=== PATIENT | female | born 1980 | race African-American/Black ===

== ENCOUNTER 2018-03-12 08:17 | Emergency (ER) | payer MEDICAID ==
[~2018-03-12] VITALS: Ht 165.1 cm; Wt 81.6 kg
[~2018-03-12 08:17] MED LIST: ALBUTEROL SULF8.5 GM INH; AZITHROMYCIN250 MG ORAL; BACTRIM DS TAB1 EAC1 ORAL; BACTRIM-DS1 EA PO; CEPHALEXIN500 MG PO; IBUPROFEN800 MG ORAL; NKM
[2018-03-12 08:25] VITALS: BP 138/79
[2018-03-12 08:59] LABS: BASOPHILS % (AUTO) 1.8 % (0.0-2.0); EOSINOPHILS % (AUTO) 1.9 % (0.0-3.0); HEMATOCRIT 41.1 % (37.0-47.0); HEMOGLOBIN 13.1 G/DL (12.0-16.0); LYMPHOCYTES % (AUTO) 42.9 % (20.0-45.0); MEAN CORPUSCULAR VOLUME 83 FL (80-99); NEUTROPHILS % (AUTO) 44.3 % (45.0-75.0); PLATELET COUNT 193 K/UL (150-450); RED BLOOD COUNT 4.93 M/UL (4.20-5.40); RED CELL DISTRIBUTION WIDTH 12.7 % (11.6-14.8); WHITE BLOOD COUNT 5.6 K/UL (4.8-10.8)
[2018-03-12 09:08] LABS: ANION GAP 7 mmol/L (5-15); BLOOD UREA NITROGEN 11 mg/dL (7-18); CALCIUM 9.3 MG/DL (8.5-10.1); CARBON DIOXIDE 29 MMOL/L (21-32); CHLORIDE 103 MMOL/L (98-107); CREATININE 0.9 MG/DL (0.55-1.30); SODIUM 139 MMOL/L (136-145)
--- NOTE | 2018-03-12 09:11 | Emergency Room Report ---
History of Present Illness General Chief Complaint: General Complaint Source: Patient Present Illness HPI The patient states that she was driving with her daughter to drop her at school this morning. She states that she made a wrong turn it. She states that occurred she felt "off." She states she also noted that this morning when she woke up she was nauseated. She had no vomiting. She is not nauseated any longer. She states that shortly thereafter she developed a numbness sensation in the left side of her body. She states that she is unsure what was going on. She states that this lasted about 15-20 minutes. She states that it was very disconcerting. She denies headache. She denies blurry vision. She denies neck pain. She denies recent illness. She denies fever or chills. She has no other complaints. Allergies: Coded Allergies: CIPROFLOXACIN (Unverified Allergy, Unknown, 12/05/15) Patient History Past Medical History: see triage record, asthma - Hx of asthma Past Surgical History: Pertinent Family History: none Social History: Denies: smoking, alcohol use, drug use Reviewed Nursing Documentation: PMH: Agreed; PSxH: Agreed Nursing Documentation-PMH Hx Cardiac Problems: No Hx Asthma: Yes Hx Gastrointestinal Problems: No - C/S in 1999 Review of Systems All Other Systems: negative except mentioned in HPI Physical Exam Vital Signs Date Time Temp Pulse Resp B/P (MAP) Pulse Ox O2 Delivery O2 Flow Rate FiO2 03/12/18 08:21 98.1 79 20 138/79 100 Room Air 98.1 Sp02 EP Interpretation: reviewed, normal General Appearance: no apparent distress, alert, GCS 15, non-toxic Head: normocephalic, atraumatic Eyes: bilateral eye normal inspection, bilateral eye PERRL ENT: hearing grossly normal, normal pharynx, no angioedema, normal voice Neck: full range of motion, supple/symm/no masses Respiratory: chest non-tender, lungs clear, normal breath sounds, speaking full sentences Cardiovascular #1: regular rate, rhythm, no edema Gastrointestinal: normal bowel sounds, non tender, soft, non-distended, no guarding, no rebound Rectal: deferred Musculoskeletal: back normal, gait/station normal, normal range of motion, non- tender Neurologic: alert, oriented x3, responsive, motor strength/tone normal, sensory intact, speech normal Psychiatric: judgement/insight normal, memory normal, mood/affect normal, no suicidal/homicidal ideation Skin: normal color, no rash, warm/dry, well hydrated Medical Decision Making Diagnostic Impression: Primary Impression: Arm paresthesia, left Additional Impression: Left leg paresthesias ER Course This patient presents with an intermittent episode of left-sided paresthesias. Patient is otherwise healthy and had a normal physical exam and specifically a normal neurologic exam. She had some nausea this morning and may have a viral illness. I did go ahead and do basic labs to include CBC, CMP, cardiac enzymes , thyroid panel and these were unremarkable. There is no evidence of electrolyte abnormality, anemia, thyroid dysfunction or acute coronary syndrome. EKG is reassuring. Given the episode of numbness, although, I have low suspicion for an intracranial process, I did obtain a CT of the head which was reassuring. I did educate the patient if she has any further symptoms she should return. Also, she could follow-up with her primary care physician and obtain an MRI, at this time, do not feel that an MRI is indicated emergently given the benign evaluation and history. Further, the patient admits to recent increased stress in her life and then difficulty with traffic getting her daughter to school this morning. I feel that this also could be anxiety related. However, I did educate the patient to follow-up closely with her primary care physician. She is given close return precautions and follow-up instructions. Laboratory Tests Test 03/12/18 08:40 White Blood Count 5.6 K/UL (4.8-10.8) Red Blood Count 4.93 M/UL (4.20-5.40) Hemoglobin 13.1 G/DL (12.0-16.0) Hematocrit 41.1 % (37.0-47.0) Mean Corpuscular Volume 83 FL (80-99) Mean Corpuscular Hemoglobin 26.5 PG (27.0-31.0) L Mean Corpuscular Hemoglobin Concent 31.8 G/DL (32.0-36.0) L Red Cell Distribution Width 12.7 % (11.6-14.8) Platelet Count 193 K/UL (150-450) Mean Platelet Volume 12.5 FL (6.5-10.1) H Neutrophils (%) (Auto) 44.3 % (45.0-75.0) L Lymphocytes (%) (Auto) 42.9 % (20.0-45.0) Monocytes (%) (Auto) 9.0 % (1.0-10.0) Eosinophils (%) (Auto) 1.9 % (0.0-3.0) Basophils (%) (Auto) 1.8 % (0.0-2.0) Prothrombin Time 9.8 SEC (9.30-11.50) Prothrombin Time INR 0.9 (0.9-1.1) PTT 28 SEC (23-33) Urine Color Pale yellow Urine Appearance Cloudy Urine pH 6 (4.5-8.0) Urine Specific Hiram 1.020 (1.005-1.035) Urine Protein Negative (NEGATIVE) Urine Glucose (UA) Negative (NEGATIVE) Urine Ketones Negative (NEGATIVE) Urine Occult Blood 1+ (NEGATIVE) H Urine Nitrite Negative (NEGATIVE) Urine Bilirubin Negative (NEGATIVE) Urine Urobilinogen Normal MG/DL (0.0-1.0) Urine Leukocyte Esterase 1+ (NEGATIVE) H Urine RBC 0-2 /HPF (0 - 2) Urine WBC 2-4 /HPF (0 - 2) Urine Squamous Epithelial Cells Few /LPF (NONE/OCC) Urine Bacteria Many /HPF (NONE) H Urine HCG, Qualitative Negative (NEGATIVE) Sodium Level 139 MMOL/L (136-145) Potassium Level 4.0 MMOL/L (3.5-5.1) Chloride Level 103 MMOL/L (98-107) Carbon Dioxide Level 29 MMOL/L (21-32) Anion Gap 7 mmol/L (5-15) Blood Urea Nitrogen 11 mg/dL (7-18) Creatinine 0.9 MG/DL (0.55-1.30) Estimate Glomerular Filtration Rate > 60 mL/min (>60) Glucose Level 93 MG/DL (74-106) Calcium Level 9.3 MG/DL (8.5-10.1) Total Bilirubin 0.3 MG/DL (0.2-1.0) Aspartate Amino Transferase (AST) 15 U/L (15-37) Alanine Aminotransferase (ALT) 22 U/L (12-78) Alkaline Phosphatase 49 U/L (46-116) Total Protein 8.4 G/DL (6.4-8.2) H Albumin 3.8 G/DL (3.4-5.0) Globulin 4.6 g/dL Albumin/Globulin Ratio 0.8 (1.0-2.7) L Thyroid Stimulating Hormone (TSH) 1.889 uiU/mL (0.358-3.740) Free Thyroxine 0.86 NG/DL (0.76-1.46) Urine Opiates Screen Negative (NEGATIVE) Urine Barbiturates Screen Negative (NEGATIVE) Phencyclidine (PCP) Screen Negative (NEGATIVE) Urine Amphetamines Screen Negative (NEGATIVE) Urine Benzodiazepines Screen Negative (NEGATIVE) Urine Cocaine Screen Negative (NEGATIVE) Urine Marijuana (THC) Screen Negative (NEGATIVE) EKG Diagnostic Results Rate: normal Rhythm: NSR ST Segments: no acute changes Rhythm Strip Diag. Results EP Interpretation: yes Rate: 70's Rhythm: NSR, no PVC's, no ectopy CT/MRI/US Diagnostic Results CT/MRI/US Diagnostic Results : Imaging Test Ordered: CT head Impression No acute findings. See official report. Last Vital Signs Date Time Temp Pulse Resp B/P (MAP) Pulse Ox O2 Delivery O2 Flow Rate FiO2 03/12/18 08:25 98.1 79 20 138/79 100 Room Air 98.1 Disposition: HOME, SELF-CARE Condition: Improved Referrals: [facility],REFERRING (PCP) AGUSTIN LANTIGUA D.O. March 12, 2018 09:11
[2018-03-12 09:15] LABS: APPEARANCE,URINE CLOUDY; BILIRUBIN, URINE NEGATIVE (NEGATIVE); COLOR,URINE PALE YELLOW; GLUCOSE, URINE (UA) NEGATIVE (NEGATIVE); KETONES,URINE NEGATIVE (NEGATIVE); LEUKOCYTE ESTERASE ,URINE 1+ (NEGATIVE); NITRITE,URINE NEGATIVE (NEGATIVE); PH,URINE 6 (4.5-8.0); PROTEIN,URINE NEGATIVE (NEGATIVE); UROBILINOGEN,URINE NORMAL MG/DL (0.0-1.0)
[2018-03-12 09:24] LABS: ALANINE AMINOTRANSFERASE 22 U/L (12-78); ALBUMIN 3.8 G/DL (3.4-5.0); ALBUMIN/GLOBULIN RATIO 0.8 (1.0-2.7); ALKALINE PHOSPHATASE 49 U/L (46-116); ASPARTATE AMINO TRANSFERASE 15 U/L (15-37); BILIRUBIN,TOTAL 0.3 MG/DL (0.2-1.0); INR 0.9 (0.9-1.1)
--- NOTE | 2018-03-12 09:26 | Diagnostic Imaging Report ---
Indication: Left-sided head, left arm, left leg numbness that started this morning Technique: Continuous helical CT scanning of the head was performed without intravenous contrast material. Axial and coronal 5 mm sections were generated. Radiation dose was minimized using automated exposure control Dose: Total Dose Length Product - DLP 1438.[address] Dose Index - CTDIvol(s) 70.38 mGy. Comparison: none Findings: The ventricular system is normal in size and configuration. There is no shift of midline structures. No abnormal extra-axial fluid collections are noted. There is no evidence of intracerebral bleeding. No other abnormal high or low density areas are noted within the brain. Normal torre-white differentiation. Intact calvarium. Visualized orbits and sinuses are unremarkable Impression: Normal CT scan of the head without contrast material. The CT scanner at [facility] is accredited by the [employer] and the scans are performed using protocols designed to limit radiation exposure to as low as reasonably achievable to attain images of sufficient resolution adequate for diagnostic evaluation.
[2018-03-12 09:37] VITALS: BP 130/76
--- NOTE | 2018-03-15 14:01 | Cardiology Report ---
APPROVED REPORT EKG Measurement Heart [id number] FL [id number] Normal sinus rhythm Incomplete right bundle branch block Cannot rule out Anterior infarct, age undetermined Abnormal ECG
== END 2018-03-12 09:40 | disposition home or self-care (01) ==
LOC: EMR 08:37
DX: R20.2 Paresthesia of skin (principal); J45.909 Unspecified asthma, uncomplicated; Z88.1 Allergy status to other antibiotic agents
CPT/HCPCS: 36415; 70450; 80053; 80307; 81003; 81025; 84439; 84443; 85025; 85610; 85730; 87086; 87181; 93005; 99284

== ENCOUNTER 2019-08-05 16:11 | Emergency (ER) | payer MEDICAID ==
[~2019-08-05] VITALS: Ht 165.1 cm; Wt 86.2 kg
[2019-08-05 16:41] VITALS: BP 134/81
--- NOTE | 2019-08-05 16:42 | NUR ---
ED Nurse Note: first contact with pt. a/ox4. reports possible bug bites on right upper arm x1day, warm/swelling noted.
--- NOTE | 2019-08-05 17:21 | Emergency Room Report ---
History of Present Illness General Chief Complaint: Skin Rash/Abscess Source: Medical Record Present Illness HPI 39-year-old female presents to the emergency department complaining of 6 out of 10 severity pain, tenderness, swelling and erythema to the right forearm x1 day. Patient reports that she was at work outside yesterday when she began feeling itching and swelling on the right forearm and the back of her neck. Pt. denies fevers, chills or swollen tender lymph nodes. Denies lesions/rashes elsewhere on the body. Denies new medications or body washes or creams. Denies swelling of the lips, tongue , throat or airway. Denies wheezing, or shortness of breath. Denies recent travel, recent illness or ill contacts. denies blisters, oral lesions, or sloughing of the skin. Allergies: Coded Allergies: CIPROFLOXACIN (Unverified Allergy, Unknown, 12/05/15) Patient History Past Medical History: see triage record Past Surgical History: none Pertinent Family History: none Last Menstrual Period: 07/10/19 Reviewed Nursing Documentation: PMH: Agreed; PSxH: Agreed Nursing Documentation-PMH Past Medical History: No History, Except For Hx Cardiac Problems: No Hx Asthma: Yes Hx Gastrointestinal Problems: No - C/S in 1999 Review of Systems All Other Systems: negative except mentioned in HPI Physical Exam Vital Signs Date Time Temp Pulse Resp B/P (MAP) Pulse Ox O2 Delivery O2 Flow Rate FiO2 08/05/19 16:26 98.2 83 18 134/81 (98) 98 Room Air Sp02 EP Interpretation: reviewed, normal General Appearance: no apparent distress, alert, GCS 15, non-toxic Head: normocephalic, atraumatic Eyes: bilateral eye normal inspection, bilateral eye PERRL ENT: hearing grossly normal, normal voice Neck: full range of motion Respiratory: lungs clear, normal breath sounds, no wheezing, speaking full sentences Cardiovascular #1: regular rate, rhythm, normal capillary refill Musculoskeletal: back normal, gait/station normal, normal range of motion, inflammation - right forearm localized area of erythema and warmth 3cm in diameter, tender - mild ttp to the medial right forearm. Neurologic: alert, oriented x3, responsive, motor strength/tone normal, sensory intact, speech normal, grossly normal Psychiatric: judgement/insight normal Skin: other - right forearm localized area of erythema and warmth 3cm in diameter, there is a 1cm erythematous papule on the right posterior neck. no blisters, vessicles or sloughing of the skin. Lymphatic: no adenopathy Medical Decision Making PA Attestation Dr. Sotelo is my supervising Physician whom patient management has been discussed with. Diagnostic Impression: Primary Impression: Insect bites of multiple sites, infected ER Course 39-year-old female presents to the emergency department complaining of 6 out of 10 severity pain, tenderness, swelling and erythema to the right forearm x1 day. Patient reports that she was at work outside yesterday when she began feeling itching and swelling on the right forearm and the back of her neck. Pt. denies fevers, chills or swollen tender lymph nodes. Denies lesions/rashes elsewhere on the body. Denies new medications or body washes or creams. Denies swelling of the lips, tongue , throat or airway. Denies wheezing, or shortness of breath. Denies recent travel, recent illness or ill contacts. denies blisters, oral lesions, or sloughing of the skin. Ddx considered but are not limited to cellulitis, scabies, insect bites, tic bites, spider bites, contact dermatitis, Drug reaction, allergic reaction, fungal infection, lice. Vital signs: are WNL, pt. is afebrile H&PE are most consistent with insect bites, one which has a secondary cellulitis. ORDERS: none required at this time, the diagnosis is clinical ED INTERVENTIONS: None required at this time. DISCHARGE: At this time pt. is stable for d/c to home. Will provide printed patient care instructions, and any necessary prescriptions. Care plan and follow up instructions have been discussed with the patient prior to discharge. Last Vital Signs Date Time Temp Pulse Resp B/P (MAP) Pulse Ox O2 Delivery O2 Flow Rate FiO2 08/05/19 16:41 98.2 83 18 134/81 98 Room Air Disposition: HOME, SELF-CARE Condition: Stable Scripts Hydrocortisone 2% Cream (ANTI-ITCH 2% CREAM) Y Cr 1 APPLIC TP Q6HR, #28.3 GM Prov: Etta Case 08/05/19 Ibuprofen* (MOTRIN*) 600 Mg Tablet 600 MG ORAL THREE TIMES A DAY, #30 TAB 0 Refills Prov: Etta Case 08/05/19 Cephalexin* (KEFLEX*) 500 Mg Capsule 500 MG ORAL EVERY 12 HOURS for 7 Days, #14 CAP 0 Refills Prov: Etta Case 08/05/19 Patient Instructions: Cellulitis, [id number], Insect Bite, [id number] Additional Instructions: Take medications as directed. Follow up with a Primary Care Provider in 3-5 days, even if your symptoms have resolved. Return sooner to ED if new symptoms occur, or current symptoms become worse. - Please note that this Emergency Department Report was dictated using [employer] wire aligner technology software, occasionally this can lead to erroneous entry secondary to interpretation by the dictation equipment. Etta Case Aug 05, 2019 17:21
[2019-08-05] MEDS ORDERED: ANTI-ITCH28 G1 TP (17:27)
[2019-08-05] MEDS ORDERED: IBUPROFEN600 MG ORAL (17:27)
[2019-08-05] MEDS ORDERED: CEPHALEXIN500 MG ORAL (17:27)
[2019-08-05 17:42] VITALS: BP 134/81
== END 2019-08-05 17:45 | disposition home or self-care (01) ==
LOC: EMR 16:30
DX: S50.861A Insect bite (nonvenomous) of right forearm, initial encounter (principal); S10.96XA Insect bite of unspecified part of neck, initial encounter; L08.9 Local infection of the skin and subcutaneous tissue, unspecified; Z88.1 Allergy status to other antibiotic agents; J45.909 Unspecified asthma, uncomplicated; W57.XXXA Bitten or stung by nonvenomous insect and other nonvenomous arthropods, initial encounter; Y92.9 Unspecified place or not applicable; Y99.0 Civilian activity done for income or pay
CPT/HCPCS: 99282

== ENCOUNTER 2019-09-12 22:33 | Emergency (ER) | payer MEDICAID ==
[~2019-09-12] VITALS: Ht 165.1 cm; Wt 86.2 kg
[~2019-09-12 22:33] MED LIST changes: +ANTI-ITCH28 G1 TP; +CEPHALEXIN500 MG ORAL; +IBUPROFEN600 MG ORAL
[2019-09-12 22:41] VITALS: BP 138/87
--- NOTE | 2019-09-12 23:04 | Emergency Room Report ---
History of Present Illness General Chief Complaint: Upper Respiratory Illness Source: Patient Present Illness [facility] This is a 39-year-old female with history of asthma as a kid. She has not used an inhaler for many years. She presents with chief complaint of flulike illness. Onset yesterday. She started having some congestion and weakness. Woke up with loss of voice. Now with shortness of breath. Worse with exertion. Worse with inspiration. No fever chills but no nausea no vomiting. No diarrhea. Denies any pain other than her throat pain. Allergies: Coded Allergies: CIPROFLOXACIN (Unverified Allergy, Unknown, 12/05/15) Patient History Past Medical History: see triage record, old chart reviewed Past Surgical History: none Pertinent Family History: none Social History: Denies: smoking Last Menstrual Period: 08/2019 Now: No Immunizations: other Reviewed Nursing Documentation: PMH: Agreed; PSxH: Agreed Nursing Documentation-PMH Hx Cardiac Problems: No Hx Asthma: Yes Hx Gastrointestinal Problems: No - C/S in 1999 Review of Systems Eye: Denies: eye pain, blurred vision ENT: Reports: nose congestion, throat pain; Denies: ear pain, throat swelling Respiratory: Reports: cough, shortness of breath Cardiovascular: Denies: chest pain, palpitations Gastrointestinal: Denies: abdominal pain, diarrhea, nausea, vomiting Musculoskeletal: Denies: back pain, joint pain Skin: Denies: rash Neurological: Denies: headache, numbness Endocrine: Denies: increased thirst, increased urine Hematologic/Lymphatic: Denies: easy bruising All Other Systems: negative except mentioned in HPI Physical Exam Vital Signs Date Time Temp Pulse Resp B/P (MAP) Pulse Ox O2 Delivery O2 Flow Rate FiO2 09/12/19 22:36 99.1 113 18 138/87 (104) 95 Room Air Vitals with slight tachycardia Sp02 EP Interpretation: reviewed, normal General Appearance: well appearing, no apparent distress, alert Head: normocephalic, atraumatic Eyes: bilateral eye PERRL, bilateral eye EOMI ENT: hearing grossly normal, uvula midline - Mild edema, pharyngeal erythema Neck: full range of motion, supple, no meningismus Respiratory: chest non-tender, other - Coughing with inspiration Cardiovascular #1: regular rate, rhythm, no murmur Gastrointestinal: normal bowel sounds, non tender, no mass, no organomegaly, no bruit, non-distended Musculoskeletal: back normal, gait/station normal, normal range of motion Psychiatric: mood/affect normal Medical Decision Making Diagnostic Impression: Primary Impression: Upper respiratory infection Qualified Codes: J06.9 - Acute upper respiratory infection, unspecified Additional Impression: Bronchitis with asthma, acute ER Course Patient with upper respiratory infection with bronchospasm and slight wheezing. Better after breathing treatment. Will discharge home. No evidence of pneumonia, bacterial infection, ACS, PE, dissection to name a few. Last Vital Signs Date Time Temp Pulse Resp B/P (MAP) Pulse Ox O2 Delivery O2 Flow Rate FiO2 09/12/19 22:36 99.1 113 18 138/87 (104) 95 Room Air Status: improved Disposition: HOME, SELF-CARE Condition: Stable Scripts Prednisone* (PREDNISONE*) 20 Mg Tablet 40 MG ORAL DAILY, #8 TAB Prov: Jacques Cardona MD 09/13/19 Ibuprofen* (MOTRIN*) 600 Mg Tablet 600 MG ORAL THREE TIMES A DAY, #30 TAB 0 Refills Prov: Jacques Cardona MD 09/13/19 Albuterol Sulfate* (ALBUTEROL SULFATE HHN*) 2.5 Mg/3 Ml Vial.neb 2.5 MG HHN Q4H PRN for Shortness of Breath, #25 VIAL Prov: Jacques Cardona MD 09/13/19 Albuterol Sulfate* (ALBUTEROL SULFATE MDI*) 8.5 Gm Hfa.aer.ad 2 PUFF INH Q4H PRN for cough/wheezing, #1 EA 0 Refills Prov: Jacques Cardona MD 09/13/19 Patient Instructions: Upper Respiratory Infection, Adult Additional Instructions: Increase fluids. Rest. Follow with your doctor in 3 to 5 days for recheck if not better. Return if worse. Jacques Cardona MD Sep 12, 2019 23:04
[2019-09-12] MEDS ORDERED: Albuterol ud Inhalation HHN ONE (23:15)
[2019-09-13] MEDS ORDERED: ALBUTEROL SULF8.5 GM INH (00:06)
[2019-09-13] MEDS ORDERED: IBUPROFEN600 MG ORAL (00:06)
[2019-09-13] MEDS ORDERED: PREDNISONE20 MG ORAL (00:06)
[2019-09-13] MEDS ORDERED: ALBUTEROL2.5 MG/3 M HHN (00:06)
[2019-09-13 00:14] VITALS: BP 135/73
== END 2019-09-13 00:14 | disposition home or self-care (01) ==
LOC: EMR 23:03
DX: J06.9 Acute upper respiratory infection, unspecified (principal); J20.9 Acute bronchitis, unspecified; J45.909 Unspecified asthma, uncomplicated; Z88.8 Allergy status to other drugs, medicaments and biological substances
CPT/HCPCS: 94640; 94664; J7512; Z7502; 99284